=== PATIENT | male | born 1995 ===

== ENCOUNTER 2020-01-06 21:42 | Emergency (ER) | payer OTHER, BC ==
[2020-01-06 22:43] VITALS: BP 136/82
[2020-01-07] MEDS ORDERED: traMADol 50 MG TAB PO ONE (01:46)
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
== END 2020-01-07 02:40 | disposition home or self-care (01) ==
LOC: ED 21:42
DX: M54.2 Cervicalgia (principal); M54.6 Pain in thoracic spine; V49.49XA Driver injured in collision with other motor vehicles in traffic accident, initial encounter; Y93.89 Activity, other specified; Y92.89 Other specified places as the place of occurrence of the external cause; Y99.8 Other external cause status
CPT/HCPCS: 99282